=== PATIENT | female | born 1960 | race Caucasian/White ===

== ENCOUNTER 2018-01-17 13:37 | Observation (INO) | payer OTHER ==
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
[2018-01-17] MEDS ORDERED: IOPAMIDOL (ISOVUE-300) 100 ML BTL ONE (14:13)
--- NOTE | 2018-01-17 14:16 | CPEKG ---
Heart Rate: 80 RR Interval: 750 P-R Interval: 152 QRSD Interval: 90 QT Interval: 396 QTC Interval: 457 P Pateros: 72 QRS Pateros: -56 T Wave Pateros: 46 EKG Severity - ABNORMAL ECG - EKG Impression: SINUS RHYTHM EKG Impression: PROBABLE LEFT ATRIAL ABNORMALITY EKG Impression: LAD, CONSIDER LEFT ANTERIOR FASCICULAR BLOCK EKG Impression: BORDERLINE R WAVE PROGRESSION, ANTERIOR LEADS Electronically Signed By: Carlos Alberto Avelar 17-Jan-2018 15:05:44
[2018-01-17 14:39] LABS: PLATELET COUNT 186 10^3/uL (150-400)
[2018-01-17] MEDS ORDERED: HYDROmorphONE/DILAUDID 1 MG/ML INJ ONE ×2 (15:13→16:33)
[2018-01-17] MEDS ORDERED: HYDROmorphONE/DILAUDID 2 MG/ML INJ IVP ONE (15:19)
[2018-01-17] MEDS: HYDROmorphONE/DILAUDID 2 MG/ML INJ IVP ONE ×3 (15:20→16:35)
[2018-01-17] MEDS ORDERED: ALBUTEROL 60 PUFFS/8 GM MDI IH PRN (16:29)
[2018-01-17] MEDS ORDERED: ONDANSETRON 4 MG/2 ML VIAL IVP PRN (16:33)
[2018-01-17] MEDS ORDERED: LR 1,000 ML IV SCH (17:00)
[2018-01-17] MEDS: LIDOCAINE 4%/MENTHOL 1% PATCH TD SCH ×2 (17:55→19:57)
[2018-01-17] MEDS: ACETAMINOPHEN 500 MG TAB PO SCH (18:35)
[2018-01-17] MEDS: KETOROLAC 30 MG/1 ML SDV IVP PRN (18:36)
[2018-01-17] MEDS ORDERED: IOPAMIDOL (ISOVUE 370) 100 ML BTL IV ONE (20:02)
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
[2018-01-17] MEDS: METHADONE HCL 5 MG TAB PO SCH (20:21)
[2018-01-17] MEDS: FLUTICASONE/SALMETER 250/50MCG DISKUS IH SCH (20:21)
[2018-01-17] MEDS ORDERED: PATCH REMOVAL 1 EA PATCH TD SCH (21:00)
[2018-01-17] MEDS ORDERED: traZODone 50 MG TAB PO SCH (21:00)
[2018-01-17] MEDS: HYDROmorphONE/DILAUDID 1 MG/ML INJ IVP PRN (23:46)
[2018-01-18] MEDS: ACETAMINOPHEN 500 MG TAB PO SCH ×2 (02:11→09:29)
[2018-01-18] MEDS: KETOROLAC 30 MG/1 ML SDV IVP PRN ×2 (05:11→11:30)
[2018-01-18 05:14] LABS: PLATELET COUNT 159 10^3/uL (150-400)
[2018-01-18] MEDS ORDERED: LEVOTHYROXINE 125 MCG TAB PO SCH (06:00)
[2018-01-18] MEDS ORDERED: PATCH REMOVAL 1 EA PATCH TD SCH (08:00)
[2018-01-18] MEDS: HYDROmorphONE/DILAUDID 1 MG/ML INJ IVP PRN (08:09)
[2018-01-18] MEDS: METHADONE HCL 5 MG TAB PO SCH (08:10)
[2018-01-18] MEDS ORDERED: CHOLECALCIFEROL VIT D3 1,000 UNITS TAB PO SCH (09:00)
[2018-01-18] MEDS ORDERED: CYANO/VITAMIN B12 1000 MCG TAB PO SCH (09:00)
[2018-01-18] MEDS ORDERED: DULoxetine 20 MG CAP PO SCH (09:00)
[2018-01-18] MEDS ORDERED: ASCORBIC ACID 500 MG TAB PO SCH (09:00)
[2018-01-18] MEDS: FLUTICASONE/SALMETER 250/50MCG DISKUS IH SCH (09:10)
[2018-01-18] MEDS ORDERED: PNEUMOCOCCAL 0.5ML VACCINE VIAL IM ONE (11:44)
--- NOTE | 2018-01-18 13:17 | TRAUMAPNT ---
Trauma Tertiary Progress Note New Findings: No new findings. Assessment/Plan: PAD#1 01/18/2018 Assessment: Felling much better. Pain controlled. IS only to 1000. CXR pending Plan: CXR - If no issues, will consider discharge. Subjective: Eating well Objective: Vital Signs Temp Pulse Resp BP Pulse Ox 36.6 C 82 18 118/61 90 L 01/18/18 11:13 01/18/18 11:13 01/18/18 11:13 01/18/18 11:13 01/18/18 11:13 Laboratory Results 01/18/18 04:45 01/18/18 04:45 01/17/18 01/18/18 01/19/18 05:59 05:59 05:59 Intake Total 300 Output Total 800 Balance -500 - C-Spine Clearance Cervical Spine Cleared: Yes Provider who Cleared Cervical Spine: Huma Physical Exam - Physical Exam General Appearance: WD/WN, alert, no apparent distress Neck: non-tender, full range of motion, supple, normal inspection Respiratory: lungs clear, normal breath sounds, other (Right chest tender. No E to A changes) Cardiac/Chest: regular rate, rhythm Abdomen: normal bowel sounds, non-tender, soft Pelvic Exam: deferred Rectal: deferred Back: Normal inspection Skin: normal color, warm/dry Extremities: normal range of motion, non-tender, normal inspection, other ( wound left lower leg doing well) Neuro/Psych: no motor/sensory deficits, alert, normal mood/affect, oriented x 3 Time Spent w/Patient (minutes): 25
[2018-01-18] MEDS ORDERED: CYCLOBENZAPRINE 10 MG TAB PO PRN (14:30)
--- NOTE | 2018-01-18 14:55 | ASMTCASEMG ---
Living Arrangements What is your living Answers: With Spouse arrangement? Who do you live with? Type Of Residence What kind of residence do Answers: House you live in? Discharge Plan Comments Coordination Status Comments Notes: Pt is a 57 y/o female admitted for rib reactures and right pneumothorax. Therapies have cleared pt to d/c without any needs. No other identified needs at this time. CM available for changes. Plan: Independent Date Signed: 01/18/2018 02:54 PM Electronically Signed By:ELADIA Hu
[2018-01-18 15:33] VITALS: BP 126/72
[2018-01-18] MEDS ORDERED: LIDOCAINE 4%/MENTHOL 1% PATCH TD SCH (21:00)
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
== END 2018-01-18 17:18 | disposition home or self-care (01) ==
LOC: INTOOBSV 15:41 → F3N 17:40
PROVIDERS: ADMIT Surgery; ATTEND Surgery
PROC: 0HQLXZZ Repair Left Lower Leg Skin, External Approach (ICD-10-PCS; principal; 2018-01-17)
DX: S06.0X9A Concussion with loss of consciousness of unspecified duration, initial encounter (principal); S22.41XA Multiple fractures of ribs, right side, initial encounter for closed fracture; S81.812A Laceration without foreign body, left lower leg, initial encounter; J98.11 Atelectasis; V89.2XXA Person injured in unspecified motor-vehicle accident, traffic, initial encounter
CPT/HCPCS: 12034; 70450; 70498; 71045; 71046; 71260; 72125; 72129; 72132; 73590; 74177; 90471; 92523; 93005; 97116; 97161; 97165; 99285; G0378; 82947-QW; G0009; J0690; J1170; J1885; Q9967